=== PATIENT | female | born 1985 | race Caucasian/White ===

== ENCOUNTER 2016-07-23 00:36 | Emergency (ER) | payer BC ==
[~2016-07-23] VITALS: Ht 149.9 cm; Wt 70.3 kg
[~2016-07-23 00:36] MED LIST: ALBU1.25 IH; CETI10TA20 PO; CHOL3000 PO; FLUT1DIS27 IH; HYDR-3812 PO; IBUP-1773 PO; NITR-65 PO; RT-ALBUINH IH
[2016-07-23] MEDS ORDERED: predniSONE 20 MG TAB PO ONE (01:00)
[2016-07-23] MEDS ORDERED: RT-IPRATROPIUM (ATROVENT) 0.5MG/2.5ML AMP IH ONE (01:00)
[2016-07-23] MEDS ORDERED: DEXAMETHASONE 4 MG/ML SDV (DECADRON) IH ONE (01:00)
[2016-07-23] MEDS ORDERED: LEVOFLOXACIN 500 MG TAB (LEVAQUIN) PO ONE (02:30)
--- NOTE | 2016-07-23 02:35 | ED Respiratory ---
General Chief Complaint: Respiratory Problems Stated Complaint: ASTHMA ATTACK Nursing Triage Note: pt reports head congestion which settled in chest tuesday evening causing asthma exacerbation. she has used her nebulizer approx 25 times today along with albuteral inhaler. Source: patient History of Present Illness Time seen by provider: 00:44 Initial Comments C/O "ASTHMA ATTACK" STATES SHE HAS HAD UPPER RESPIRATORY/SINUS CONGESTION AND DRAINAGE/ALLERGIES FOR THE LAST COUPLE OF DAYS, NOW FEELS LIKE IT IS MOVING INTO HER CHEST HAS NON-PRODUCTIVE COUGH AND CHEST FEELS TIGHT. NO FEVER NO KNOWN SICK CONTACTS SYMPTOMS WORSENED SINCE TUESDAY EVENING 07/21/16 HAS USED HER ALBUTEROL NEBULIZER AT LEAST 25 TIMES TODAY, AND ADDITIONALLY SHE HAS USED HER ALBUTEROL INHALER MULTIPLE TIMES TODAY WELL. USED BOTH JUST PRIOR TO ARRIVAL STATES SYMPTOMS "COME AND GO" BUT STATES SHE HAS NOT NOTICED ANY IMPROVEMENT WITH THE ABOVE, ALTHOUGH SHE STATES THAT HER SYMPTOMS ARE IMPROVING SINCE SHE ARRIVED IN ER PT STATE SHE USES HER ALBUTEROL INHALER MULTIPLE TIMES EVERY DAY, NORMALLY--BUT HAS BEEN WORSE THAN NORMAL SINCE YESTERDAY. STATES SHE GOES THROUGH A MINIMUM OF 1 ALBUTEROL INHALER EVERY MONTH SHE USES ADVAIR 500/50 1 PUFF TWICE A DAY SHE ALSO USES ZYRTEC DAILY AND RHINOCORT NASAL SPRAY DAILY PT HAS NEVER SEEN A DIESEL ENGINE SPECIALIST PT HAS NEVER SMOKED PT HAS BEEN AT HER TUEDING REHEARSAL TONIGHT, THEN CAME HERE AFTER REHEARSAL. HAS HAD 2 MIXED DRINKS TONIGHT. PCP: DR. RAMIREZ Allergies and Home Medications Allergies Coded Allergies: latex (Verified Allergy, Unknown, RASH, 09/25/15) Home Medications Albuterol Sulfate 1.25 Mg/3 Ml Vial.neb, 1.25 MG IH Q4H PRN for SHORTNESS OF BREATH, (Reported) Albuterol Sulfate 8.5 Gm Hfa.aer.ad, 1-2 PUFF IH Q4H PRN for WHEEZING, (Reported ) Albuterol/Ipratropium 4 Gm Aero, 2 PUFF IH Q4H, #1 Prescribed by: KATHLEEN RAWLS on 07/23/16 0240 Budesonide 1 Mg/2 Ml Ampul.neb, 1 MG IH BID, #1 Prescribed by: KATHLEEN RAWLS on 07/23/16 0240 Cetirizine HCl 10 Mg Tablet, 10 MG PO DAILY, (Reported) Cetirizine HCl/Pseudoephedrine 1 Each Tab.er.12h, 1 EACH PO BID, #30 Prescribed by: KATHLEEN RAWLS on 07/23/16 0240 Fluticasone/Salmeterol 1 Each Blst.w.dev, 1 EACH IH BID, (Reported) Ipratropium/Albuterol Sulfate 3 Ml Ampul.neb, 3 ML IH Q4H PRN for SHORTNESS OF BREATH, #1 Prescribed by: KATHLEEN RAWLS on 07/23/16 0240 Levofloxacin 500 Mg Tablet, 500 MG PO DAILY, #10 Prescribed by: KATHLEEN RAWLS on 07/23/16 0240 Methylprednisolone 4 Mg Tab.ds.pk, 0 PO UD, #1 Prescribed by: KATHLEEN RAWLS on 07/23/16 0240 Constitutional: no symptoms reported EENTM: nose congestion, see HPI Respiratory: see HPI, cough, short of breath, wheezing Cardiovascular: see HPI, chest pain (TIGHTNESS) Gastrointestinal: no symptoms reported Genitourinary: no symptoms reported : No (HAS IUD) LMP: Jul 01, 2016 Musculoskeletal: no symptoms reported Skin: no symptoms reported Psychiatric/Neurological: Anxiety Hematologic/Lymphatic: No Symptoms Reported Immunological/Allergic: see HPI Past Hajpmgy-Fijxdc-Xwhudf Hx Patient Social History Alcohol Use: Occasionally Uses Recreational Drug Use: No Smoking Status: Never a Smoker 2nd Hand Smoke Exposure: No Recent Foreign Travel: No Contact w/Someone Who Travel: No Recent Infectious Disease Expo: No Recent Hopitalizations: No Seasonal Allergies Seasonal Allergies: Yes Surgeries HX Surgeries: Yes (wisdom teeth, cystoscopy; LAPAROSCOPY) Surgeries: Bladder Surgery Respiratory Hx Respiratory Disorders: Yes Respiratory Disorders: Asthma Cardiovascular Hx Cardiac Disorders: No Neurological Hx Neurological Disorders: No Reproductive System Hx Reproductive Disorders: No SHUTTLE HAND History: IUD Genitourinary Hx Genitourinary Disorders: Yes (IC) Genitourinary Disorders: UTI-Chronic Gastrointestinal Hx Gastrointestinal Disorders: No Musculoskeletal Hx Musculoskeletal Disorders: No Endocrine Hx Endocrine Disorders: No HEENT HX ENT Disorders: No Cancer Hx Cancer: No Psychosocial Hx Psychiatric Problems: Yes (OCD) Behavioral Health Disorders: ADD/ADHD, Anxiety, Depression Integumentary HX Skin/Integumentary Disorder: No Blood Transfusions Hx Blood Disorders: No Physical Exam Vital Signs Vital Sign - Last 12Hours 07/23/16 07/23/16 00:46 01:28 Temp 99.3 Pulse 102 Resp 28 B/P (MAP) 126/74 Pulse Ox 99 Capillary Refill : Less Than 3 Seconds General Appearance: WD/WN, no apparent distress, other (ANXIOUS AND MILD HYPERVENTILATION, BUT CAN TALK IN FULL SENTENCES) HEENT: PERRL/EOMI, TMs normal, pharynx normal, other (NASAL MUCOSAL EDEMA AND CLEAR RHINORRHEA. NO SINUS TENDERNESS) Neck: non-tender, full range of motion, supple, normal inspection Respiratory: no respiratory distress, no accessory muscle use, No rales, No rhonchi, No wheezing, other (LUNG SOUNDS SLIGHTLY DIMINISHED, PT MILDLY HYPERVENTILATING) Cardiovascular: normal peripheral pulses, no edema, no gallop, no JVD, no murmur, tachycardia Gastrointestinal: non tender, soft Extremities: normal inspection, no pedal edema, normal capillary refill Neurologic/Psychiatric: financial services rep II-XII nml as tested, no motor/sensory deficits, alert, oriented x 3, other (ANXIOUS) Skin: normal color, warm/dry Progress/Results/Core Measures Results/Orders Micro Results Microbiology 07/23/16 Influenza Types A,B Antigen (SANA) - Final, Complete My Orders Orders - KATHLEEN RAWLS DO Prednisone Tablet (Deltasone Tablet) (07/23/16 01:00) Chest Pa/Lat (2 View) (07/23/16 00:51) Influenza A And B Antigens (07/23/16 00:51) Ipratropium 0.02% Neb Solution (Atrovent (07/23/16 01:00) Dexamethasone Injection (Decadron Inject (07/23/16 01:00) Svn Sm Volume Nebulizer Rt-Rfs (07/23/16 00:51) Levofloxacin Tablet (Levaquin Tablet) (07/23/16 02:30) Medications Given in ED Current Medications Medications Dose Ordered Sig/Valeriy Route Start Time Stop Time Status Last Admin Dose Admin Dexamethasone Sodium Phosphate 20 mg ONCE ONCE IH 07/23/16 01:00 07/23/16 01:01 DC 07/23/16 01:27 20 MG Ipratropium [place] 0.5 mg ONCE ONCE IH 07/23/16 01:00 07/23/16 01:01 DC 07/23/16 01:27 0.5 MG Levofloxacin 500 mg ONCE ONCE PO 07/23/16 02:30 07/23/16 02:31 DC 07/23/16 02:46 500 MG Prednisone 60 mg ONCE ONCE PO 07/23/16 01:00 07/23/16 01:01 DC 07/23/16 01:44 60 MG Vital Signs/I&O Vital Sign - Last 12Hours 07/23/16 07/23/16 07/23/16 00:46 01:28 02:48 Temp 99.3 Pulse 102 89 Resp 28 16 B/P (MAP) 126/74 Pulse Ox 99 97 Blood Pressure Mean: 91 Progress Note : Progress Note FEELS MUCH BETTER AT DISMISSAL. CHEST DOES NOT FEEL TIGHT AND FEELS LIKE SHE CAN TAKE A DEEPER BREATH, PT CALMER LUNGS CLEAR AND O2 SATS IN UPPER 90'S AT TIME OF DISMISSAL Diagnostic Imaging Comments CXR--NO ACUTE PROCESS, PENDING RADIOLOGIST REVIEW Departure Impression Impression: Primary Impression: Asthma exacerbation Additional Impressions: Acute bronchitis Sinusitis Disposition: HOME, SELF-CARE Condition: Improved Departure-Patient Inst. Referrals: ANUJ RAMIREZ MD (PCP/Family) Primary Care Physician Patient Instructions: Acute Bronchitis, Adult (DC), Asthma, Adult (DC), Sinusitis, Adult (DC) Add. Discharge Instructions: HOLD ALBUTEROL NEBULIZER AND INHALER HOLD ZYRTEC CONTINUE RHINOCORT FOLLOW UP WITH DR. RAMIREZ ON TUESDAY FOR FURTHER CARE RETURN TO ER IF WORSE All discharge instructions reviewed with patient and/or family. Voiced understanding. Scripts Montelukast Sodium (Singulair) 10 Mg Tablet 10 MG PO DAILY, #30 TAB Prov: KATHLEEN RAWLS DO 07/23/16 Levofloxacin (Levaquin) 500 Mg Tablet 500 MG PO DAILY for INFECTION, #10 TAB Prov: KATHLEEN RAWLS DO 07/23/16 Budesonide (Pulmicort) 1 Mg/2 Ml Ampul.neb 1 MG IH BID, #1 EA Prov: KATHLEEN RAWLS DO 07/23/16 Methylprednisolone (Medrol) 4 Mg Tab.ds.pk 0 PO UD, #1 PKG Prov: KATHLEEN RAWLS DO 07/23/16 Cetirizine HCl/Pseudoephedrine (Zyrtec-D Tablet) 1 Each Tab.er.12h 1 EACH PO BID, #30 TAB Prov: KATHLEEN RAWLS DO 07/23/16 Ipratropium/Albuterol Sulfate (Iprat-Albut 0.5-3(2.5) mg/3 ml) 3 Ml Ampul.neb 3 ML IH Q4H Y for SHORTNESS OF BREATH, #1 EACH Prov: KATHLEEN RAWLS DO 07/23/16 Albuterol/Ipratropium (Combivent Respimat Inhal [place]) 4 Gm Aero 2 PUFF IH Q4H for Wheezing, #1 INH Prov: KATHLEEN RAWLS DO 07/23/16 KATHLEEN RAWLS DO Jul 23, 2016 02:35
[2016-07-23] MEDS ORDERED: IPRA4AER IH (02:40)
[2016-07-23] MEDS ORDERED: METH4TAB PO (02:40)
[2016-07-23] MEDS ORDERED: IPRA3AMP IH (02:40)
[2016-07-23] MEDS ORDERED: CETI1TAB61 PO (02:40)
[2016-07-23] MEDS ORDERED: LEVO500T2 PO (02:40)
[2016-07-23] MEDS ORDERED: BUDE1AMP IH (02:40)
[2016-07-23 02:48] VITALS: BP 120/77
[2016-07-23] MEDS ORDERED: MONT10TA21 PO (04:36)
--- NOTE | 2016-07-23 06:59 | Diagnostic Imaging Report ---
INDICATION: Cough and congestion. PA and lateral views of the chest are obtained. FINDINGS: Heart size and pulmonary vascularity are within normal limits, and the lungs are clear, bilaterally. IMPRESSION: Unremarkable chest. Dictated by: Dictated on workstation # [id number]
== END 2016-07-23 02:48 | disposition home or self-care (01) ==
LOC: EDUNIT# 00:36 → ER 00:38
DX: J45.901 Unspecified asthma with (acute) exacerbation (principal); J20.9 Acute bronchitis, unspecified; J32.9 Chronic sinusitis, unspecified
CPT/HCPCS: 71020; 87804; 94640; 99282

== ENCOUNTER → 2018-01-13 | Outpatient (CLI) | payer BC ==
[~2018-01-13] MED LIST changes: +ACHD5005 PO; +BUDE1AMP IH; +CETI1TAB61 PO; -HYDR-3812 PO; +IPRA3AMP31 IH; +IPRA4AER IH; +LEVO500T2 PO; +METH4TAB PO; +MONT10TA21 PO
--- NOTE | 2018-01-13 15:41 | Diagnostic Imaging Report ---
PROCEDURE: US Non-ob pelvis comp/trans. TECHNIQUE: Multiple realtime grayscale images were obtained of the pelvis in various projections endovaginally. Transabdominal imaging was also performed. INDICATION: Dyspareunia. FINDINGS: The uterus measures 6.4 x 4.1 x 3.6 cm. The endometrium is 3 mm in thickness. There is an IUD which appears to be appropriately located within the endometrial canal. There is a fibroid anterior uterus measuring approximately 11 mm in diameter. No other myometrial masses are seen. The right ovary was obscured by bowel gas and not visualized. Left ovary measures 3.7 x 2.4 x 1.5 cm. The left ovary contains multiple follicles. There is blood flow. No adnexal mass or free fluid is seen. IMPRESSION: 1. Small uterine fibroid. 2. Appropriately located IUD. 3. Nonvisualized right ovary. Dictated by: Dictated on workstation # [id number]
== END ==
LOC: RAD 13:35
PROVIDERS: ATTEND Obstetrics & Gynecology
DX: D25.9 Leiomyoma of uterus, unspecified (principal); N94.10 Unspecified dyspareunia
CPT/HCPCS: 76830; 76856

== ENCOUNTER 2018-06-08 14:21 | Emergency (ER) | payer BC ==
[~2018-06-08] VITALS: Ht 149.9 cm; Wt 86.2 kg
--- OUTSIDE RECORDS SUMMARY | 2018-06-08 14:25 | XMS REPORT | Continuity of Care Document ---
Author Author [facility] Organization [facility] Address Unknown Phone Unavailable Allergies Active Description Code Type Severity Reaction Onset Reported/Identified Relationship to Patient Clinical Status Yes No Allergy Information Available [id number] Drug Allergy Unknown N/A 2014 Yes latex [id number] Drug Allergy Unknown RASH 09/25/2015 Medications There is no data. Problems Date Dx Coded Attending Type Code Diagnosis Diagnosed By 12/30/2014 SELENE LEE DO Ot M25.551 01/09/2015 SELENE LEE DO Ot M25.551 01/28/2015 Ot R07.81 05/14/2015 Ot N39.0 06/11/2015 ANUJ RAMIREZ MD Ot N39.0 09/19/2015 TATY BRAXTON DO Ot D25.1 INTRAMURAL LEIOMYOMA OF UTERUS 09/19/2015 TATY BRAXTON DO Ot N83.29 OTHER OVARIAN CYSTS 09/19/2015 TATY BRAXTON DO Ot R10.2 PELVIC AND PERINEAL PAIN 09/25/2015 TATY BRAXTON DO Ot R10.31 RIGHT LOWER QUADRANT PAIN 09/25/2015 TATY BRAXTON DO Ot Z01.812 ENCOUNTER FOR PREPROCEDURAL LABORATORY E 09/25/2015 TATY BRAXTON DO Ot Z11.2 ENCOUNTER FOR SCREENING FOR OTHER BACTER 10/02/2015 SELENE LEE DO Ot M25.551 PAIN IN RIGHT HIP 10/02/2015 Ot R07.81 PLEURODYNIA 10/02/2015 Ot N39.0 URINARY TRACT INFECTION, SITE NOT SPECIF 10/02/2015 ANUJ RAMIREZ MD Ot N39.0 URINARY TRACT INFECTION, SITE NOT SPECIF 10/02/2015 TATY BRAXTON DO Ot D25.1 INTRAMURAL LEIOMYOMA OF UTERUS 10/02/2015 TATY BRAXTON DO Ot N83.29 OTHER OVARIAN CYSTS 10/02/2015 TATY BRAXTON DO Ot R10.2 PELVIC AND PERINEAL PAIN 10/02/2015 FENECH DO, TATY S Ot K66.0 PERITONEAL ADHESIONS (POSTPROCEDURAL) (P 10/02/2015 FENECH DO, TATY S Ot N83.20 UNSPECIFIED OVARIAN CYSTS 10/06/2015 FENECH DO, TATY S Ot K66.0 PERITONEAL ADHESIONS (POSTPROCEDURAL) (P 10/06/2015 FENECH DO, TATY S Ot N83.20 UNSPECIFIED OVARIAN CYSTS 10/14/2015 ROOSEVELT CANTU, BRAXTON Mckeon Ot N39.0 URINARY TRACT INFECTION, SITE NOT SPECIF 10/14/2015 ROOSEVELT CANTU, BRAXTON Mckeon Ot R30.0 DYSURIA 10/16/2015 ROOSEVELT CANTU, BRAXTON Mckeon Ot N39.0 URINARY TRACT INFECTION, SITE NOT SPECIF 10/16/2015 ROOSEVELT CANTU, BRAXTON Mckeon Ot R30.0 DYSURIA 10/22/2015 ROOSEVELT CANTU, BRAXTON Mckeon Ot N39.0 URINARY TRACT INFECTION, SITE NOT SPECIF 10/22/2015 ROOSEVELT CANTU, BRAXTON Mckeon Ot R30.0 DYSURIA 07/23/2016 CURLY DO KATHLEEN K Ot J20.9 ACUTE BRONCHITIS, UNSPECIFIED 07/23/2016 CURLY DO KATHLEEN K Ot J32.9 CHRONIC SINUSITIS, UNSPECIFIED 07/23/2016 CURLY DO KATHLEEN K Ot J45.901 UNSPECIFIED ASTHMA WITH (ACUTE) EXACERBA 07/23/2016 CURLY DO KATHLEEN K Ot J45.909 UNSPECIFIED ASTHMA, UNCOMPLICATED 07/23/2016 ROOSEVELT CANTU, BRAXTON Mckeon Ot N39.0 URINARY TRACT INFECTION, SITE NOT SPECIF 07/23/2016 ROOSEVELT CANTU, BRAXTON Mckeon Ot R30.0 DYSURIA 07/25/2016 CURLY DO KATHLEEN K Ot J20.9 ACUTE BRONCHITIS, UNSPECIFIED 07/25/2016 CURLY DO KATHLEEN K Ot J32.9 CHRONIC SINUSITIS, UNSPECIFIED 07/25/2016 CURLY DO KATHLEEN K Ot J45.901 UNSPECIFIED ASTHMA WITH (ACUTE) EXACERBA 07/25/2016 CURLY DO KATHLEEN K Ot J45.909 UNSPECIFIED ASTHMA, UNCOMPLICATED 08/31/2016 CURLY DO KATHLEEN K Ot J20.9 ACUTE BRONCHITIS, UNSPECIFIED 08/31/2016 CURLY DO KATHLEEN K Ot J32.9 CHRONIC SINUSITIS, UNSPECIFIED 08/31/2016 CURLY DO KATHLEEN K Ot J45.901 UNSPECIFIED ASTHMA WITH (ACUTE) EXACERBA 08/31/2016 KATHLEEN RAWLS DO Ot J45.909 UNSPECIFIED ASTHMA, UNCOMPLICATED 01/17/2018 TATY BRAXTON DO Ot D25.9 LEIOMYOMA OF UTERUS, UNSPECIFIED 01/17/2018 TATY BRAXTON DO Ot N94.10 UNSPECIFIED DYSPAREUNIA 01/25/2018 TATY BRAXTON DO Ot D25.9 LEIOMYOMA OF UTERUS, UNSPECIFIED 01/25/2018 TATY BRAXTON DO Ot N94.10 UNSPECIFIED DYSPAREUNIA Procedures There is no data. Results Test Result Range Influenza virus A and B antigen detection - 07/23/16 01:53 FLU RESULT NEGATIVE FOR INFLUENZA A AND B ANTIGENS BY IA NRG Encounters ACCT No. Visit Date/Time Discharge Status Pt. Type Provider Facility Loc./Unit Complaint [id number] 01/09/2018 15:15:00 01/09/2018 23:59:59 CLS Outpatient TATY BRAXTON DO [facility] RAD DYSPAREUNIA [id number] 07/23/2016 00:38:00 07/23/2016 02:48:00 DIS Outpatient KATHLEEN RAWLS DO [facility] ER ASTHMA ATTACK [id number] 10/09/2015 08:16:00 10/09/2015 23:59:59 CLS Outpatient BRAXTON ALBERT MD [facility] RAD R30; N37.0 [id number] 10/02/2015 08:52:00 10/02/2015 15:30:00 DIS Outpatient TATY BRAXTON DO [facility] SDC [id number] 09/25/2015 12:36:00 09/25/2015 13:07:00 DIS Outpatient TATY BRAXTON DO [facility] PREOP [id number] 09/05/2015 13:37:00 09/05/2015 23:59:59 CLS Outpatient TATY BRAXTON DO [facility] RAD [id number] 06/03/2015 13:57:00 06/03/2015 23:59:59 CLS Outpatient ANUJ RAMIREZ MD [facility] LAB [id number] 12/26/2014 09:14:00 12/26/2014 23:59:59 CLS Outpatient SELENE LEE DO [facility] RAD [id number] 06/08/2018 14:22:00 ACT Emergency IGNACIO CANTU, SEDA Rooney [facility] ER CHEST PAIN [id number] 04/29/2015 16:16:00 Document Registration [id number] 01/13/2015 13:48:00 Document Registration
--- NOTE | 2018-06-08 15:06 | Diagnostic Imaging Report ---
INDICATION: Weakness asthma chest pain COMPARISON: 07/23/2016 FINDINGS: Frontal and lateral views the chest demonstrate clear lungs bilaterally. The heart size is normal. There is no pneumothorax. Osseous structures are normal. IMPRESSION: No acute findings. Normal chest. Dictated by: Dictated on workstation # [id number]
--- NOTE | 2018-06-08 15:18 | NUR ---
LAB HERE FOR BLOOD DRAW.
[2018-06-08 15:31] LABS: BASOPHILS # (AUTO) 0.1 10^3/uL (0.0-0.1); BASOPHILS % (AUTO) 1 % (0-10); EOSINOPHILS % (AUTO) 10 % (0-10); HEMATOCRIT 41 % (35-52); LYMPHOCYTES # (AUTO) 2.5 X 10^3 (1.0-4.0); LYMPHOCYTES % (AUTO) 25 % (12-44); MEAN CORPUSCULAR HEMOGLOBIN 31 PG (25-34); MEAN CORPUSCULAR HGB CONC 35 G/DL (32-36); MEAN CORPUSCULAR VOLUME 88 FL (80-99); MONOCYTES # (AUTO) 0.4 X 10^3 (0.0-1.0); MONOCYTES % (AUTO) 5 % (0-12); NEUTROPHILS # (AUTO) 5.9 X 10^3 (1.8-7.8); NEUTROPHILS % (AUTO) 60 % (42-75); PLATELET COUNT 310 10^3/uL (130-400); RED CELL DISTRIBUTION WIDTH 12.6 % (10.0-14.5); WHITE BLOOD COUNT 9.9 10^3/uL (4.3-11.0)
--- NOTE | 2018-06-08 15:46 | ED Cardiac General ---
History of Present Illness General Chief Complaint: Cardiac/General Problems Stated Complaint: CHEST PAIN Nursing Triage Note: ARRIVED VIA AMB WITH COMPLAINTS OF PALPITATIONS AND FEELING FAINT. WAS SENT HERE BY HER DR FOR A EKG. Source: patient Exam Limitations: no limitations History of Present Illness Date Seen by Provider: Jun 08, 2018 Time Seen by Provider: 14:22 Initial Comments This 33-year-old young lady presents to the emergency room with complaints of palpitations, lightheadedness, mild tachycardia and shortness of breath. This is been a persistent problem for about 4 days now. She saw her primary care provider who ordered labs at [facility] and an EKG to be done at the hospital. Patient presented to the hospital to have her EKG done but decided to check into the ER because symptoms were worsening. She denies any drug or alcohol use or use of stimulants aside from a couple of cups of coffee. She does have a history of asthma. She has been using her nebulizer and inhaler to help with the sensation or shortness of air. She gets some minimal temporary relief. Patient has not eaten today. Allergies and Home Medications Allergies Coded Allergies: latex (Verified Allergy, Unknown, RASH, 09/25/15) Home Medications Albuterol Sulfate 1.25 Mg/3 Ml Vial.neb, 1.25 MG IH Q4H PRN for SHORTNESS OF BREATH, (Reported) Albuterol Sulfate 8.5 Gm Hfa.aer.ad, 1-2 PUFF IH Q4H PRN for WHEEZING, (Reported ) Albuterol/Ipratropium 4 Gm Aero, 2 PUFF IH Q4H Prescribed by: KATHLEEN RAWLS on 07/23/16239 Budesonide 1 Mg/2 Ml Ampul.neb, 1 MG IH BID Prescribed by: KATHLEEN RAWLS on 07/23/16239 Cetirizine HCl 10 Mg Tablet, 10 MG PO DAILY, (Reported) Cetirizine HCl/Pseudoephedrine 1 Each Tab.er.12h, 1 EACH PO BID Prescribed by: KATHLEEN RAWLS on 07/23/16239 Fluticasone/Salmeterol 1 Each Blst.w.dev, 1 EACH IH BID, (Reported) Ipratropium/Albuterol Sulfate 3 Ml Ampul.neb, 3 ML IH Q4H PRN for SHORTNESS OF BREATH Prescribed by: KATHLEEN RAWLS on 07/23/16239 Levofloxacin 500 Mg Tablet, 500 MG PO DAILY Prescribed by: KATHLEEN RAWLS on 07/23/16239 Methylprednisolone 4 Mg Tab.ds.pk, 0 PO UD Prescribed by: KATHLEEN RAWLS on 07/23/16239 Montelukast Sodium 10 Mg Tablet, 10 MG PO DAILY Prescribed by: KATHLEEN RAWLS on 07/23/16 0436 Patient Home Medication List Home Medication List Reviewed: Yes Review of Systems Review of Systems Constitutional: no symptoms reported EENTM: No Symptoms Reported Respiratory: See HPI Cardiovascular: See HPI Gastrointestinal: No Symptoms Reported Genitourinary: No Symptoms Reported Musculoskeletal: no symptoms reported Skin: no symptoms reported Psychiatric/Neurological: See HPI Endocrine: No Symptoms Reported Hematologic/Lymphatic: No Symptoms Reported Past Vpiugky-Fdqqpw-Grgvar Hx Past Med/Social Hx: Reviewed Nursing Past Med/Soc Hx Patient Social History Alcohol Use: Occasionally Uses Recreational Drug Use: No Smoking Status: Never a Smoker 2nd Hand Smoke Exposure: No Recent Foreign Travel: No Contact w/Someone Who Travel: No Recent Infectious Disease Expo: No Recent Hopitalizations: No Seasonal Allergies Seasonal Allergies: Yes Past Medical History Surgeries: Yes (wisdom teeth, cystoscopy; LAPAROSCOPY) Bladder Surgery Respiratory: Yes Asthma Cardiac: No Neurological: No : No Reproductive Disorders: No CANDY DIPPER History: IUD Genitourinary: No UTI-Chronic Gastrointestinal: No Musculoskeletal: No Endocrine: No HEENT: No Cancer: No Psychosocial: Yes (OCD) ADD/ADHD, Anxiety, Depression Integumentary: No Blood Disorders: No Physical Exam Vital Signs Vital Signs - First Documented 06/08/18 06/08/18 14:36 16:47 Temp 98.0 Pulse 104 Resp 16 B/P (MAP) 149/102 (118) Pulse Ox 100 O2 Delivery Room Air Capillary Refill : Less Than 3 Seconds Height, Weight, BMI Height: 4'11.00" Weight: 190lbs. 0.0oz. 86.464593zv; 29.1 BMI Method:Stated General Appearance: No Apparent Distress, WD/WN HEENT: PERRL/EOMI, Normal ENT Inspection Neck: Normal Inspection Respiratory: Lungs Clear, Normal Breath Sounds, No Accessory Muscle Use, No Respiratory Distress Cardiovascular: No Edema, No Murmur, Normal Peripheral Pulses, Tachycardia Gastrointestinal: Normal Bowel Sounds, Non Tender, Soft Extremity: Normal Inspection, Non Tender, No Calf Tenderness, No Pedal Edema, Other (negative Terri) Neurologic/Psychiatric: Alert, Oriented x3, No Motor/Sensory Deficits, Normal Mood/Affect, certified medical technician assistant II-XII Norm as Tested Skin: Normal Color, Warm/Dry Progress/Results/Core Measures Results/Orders Lab Results Laboratory Tests Test 06/08/18 15:25 Range/Units White Blood Count 9.9 4.3-11.0 10^3/uL Red Blood Count 4.58 4.35-5.85 10^6/uL Hemoglobin 14.0 11.5-16.0 G/DL Hematocrit 41 35-52 % Mean Corpuscular Volume 88 80-99 FL Mean Corpuscular Hemoglobin 31 25-34 PG Mean Corpuscular Hemoglobin Concent 35 32-36 G/DL Red Cell Distribution Width 12.6 10.0-14.5 % Platelet Count 310 130-400 10^3/uL Mean Platelet Volume 10.0 7.4-10.4 FL Neutrophils (%) (Auto) 60 42-75 % Lymphocytes (%) (Auto) 25 12-44 % Monocytes (%) (Auto) 5 0-12 % Eosinophils (%) (Auto) 10 0-10 % Basophils (%) (Auto) 1 0-10 % Neutrophils # (Auto) 5.9 1.8-7.8 X 10^3 Lymphocytes # (Auto) 2.5 1.0-4.0 X 10^3 Monocytes # (Auto) 0.4 0.0-1.0 X 10^3 Eosinophils # (Auto) 1.0 H 0.0-0.3 10^3/uL Basophils # (Auto) 0.1 0.0-0.1 10^3/uL D-Dimer 0.29 0.00-0.49 UG/ML Sodium Level 140 135-145 MMOL/L Potassium Level 3.5 L 3.6-5.0 MMOL/L Chloride Level 108 H 98-107 MMOL/L Carbon Dioxide Level 22 21-32 MMOL/L Anion Gap 10 5-14 MMOL/L Blood Urea Nitrogen 9 7-18 MG/DL Creatinine 0.74 0.60-1.30 MG/DL Estimat Glomerular Filtration Rate > 60 BUN/Creatinine Ratio 12 Glucose Level 96 70-105 MG/DL Calcium Level 9.1 8.5-10.1 MG/DL Corrected Calcium 8.5-10.1 MG/DL Magnesium Level 2.1 1.8-2.4 MG/DL Total Bilirubin 0.6 0.1-1.0 MG/DL Aspartate Amino Transf (AST/SGOT) 18 5-34 U/L Alanine Aminotransferase (ALT/SGPT) 26 0-55 U/L Alkaline Phosphatase 72 40-136 U/L Troponin I < 0.028 <0.028 NG/ML Total Protein 7.3 6.4-8.2 GM/DL Albumin 4.6 H 3.2-4.5 GM/DL TSH Bremer Testing 1.70 0.35-4.94 UIU/ML My Orders Orders - SEDA PIERRE MD Saline Lock/Iv-Start (06/08/18 14:34) Ekg Tracing (06/08/18 14:34) Monitor-Rhythm Ecg Trace Only (06/08/18 14:34) Cbc With Automated Diff (06/08/18 14:38) Comprehensive Metabolic Panel (06/08/18 14:38) Fibrin Degradation Products (06/08/18 14:38) Magnesium (06/08/18 14:38) Thyroid Analyzer (06/08/18 14:38) Troponin I (06/08/18 14:38) Chest Pa/Lat (2 View) (06/08/18 14:38) Vital Signs/I&O 06/08/18 06/08/18 14:36 16:47 Temp 98.0 Pulse 104 89 Resp 16 16 B/P (MAP) 149/102 (118) 126/89 (101) Pulse Ox 100 99 O2 Delivery Room Air Blood Pressure Mean: 118 Progress Progress Note : Progress Note Workup was unremarkable and vital signs were stable. Patient's heart rate was in the 70s at rest prior to dismissal. I believe anxiety probably plays a significant role in her symptoms. I advised her to continue the workup with Saige Leach as an outpatient. Initial ECG Impression Date: Jun 08, 2018 Initial ECG Impression Time: 14:28 Initial ECG Rate: 93 Initial ECG Rhythm: Normal Sinus Initial ECG Intervals: Normal Initial ECG Impression: Normal Comment Normal sinus rhythm with no ST elevation or depression. No abnormal intervals or axis deviation. Diagnostic Imaging Diagonstic Imaging: Xray Plain Films/CT/US/NM/MRI: chest Comments Chest x-ray viewed by me and report reviewed. See report below: NAME: CHI MURPHY [facility] REC#: [id number] PT STATUS: REG ER : 1985 PHYSICIAN: SEDA PIERRE MD ADMIT DATE: 06/08/18/ER Signed Date of Exam:06/08/18 CHEST PA/LAT (2 VIEW) INDICATION: Weakness asthma chest pain COMPARISON: 07/23/2016 FINDINGS: Frontal and lateral views the chest demonstrate clear lungs bilaterally. The heart size is normal. There is no pneumothorax. Osseous structures are normal. IMPRESSION: No acute findings. Normal chest. Dictated by: Dictated on workstation # [id number] Dict: 06/08/18 1503 Trans: 06/08/18 1503 [id number] Interpreted by: DEN PRESLEY Electronically signed by: DEN PRESLEY 06/08/18 1503 Departure Impression Primary Impression: Lightheadedness Additional Impression: Heart palpitations Disposition: 01 HOME, SELF-CARE Condition: Improved Departure-Patient Inst. Decision time for Depature: 16:28 Referrals: ANUJ RAMIREZ MD (PCP/Family) Primary Care Physician Patient Instructions: Palpitations (DC) Add. Discharge Instructions: Drink plenty of clear liquids. Continue your workup as directed by your primary care provider. Return to the emergency room if you have notably worsening symptoms. Stay well-hydrated and get plenty of rest. All discharge instructions reviewed with patient and/or family. Voiced understanding. Copy Copies To 1: SAIGE LEACH JOSHUA T MD Jun 08, 2018 15:46
[2018-06-08 15:52] LABS: ALANINE AMINOTRANSFERASE 26 U/L (0-55); ALBUMIN 4.6 GM/DL (3.2-4.5); ALKALINE PHOSPHATASE 72 U/L (40-136); BILIRUBIN,TOTAL 0.6 MG/DL (0.1-1.0); BUN/CREATININE RATIO 12; CALCIUM 9.1 MG/DL (8.5-10.1); CARBON DIOXIDE 22 MMOL/L (21-32); CHLORIDE 108 MMOL/L (98-107); CREATININE SERUM 0.74 MG/DL (0.60-1.30); GFR ESTIMATED > 60; GLUCOSE 96 MG/DL (70-105); MAGNESIUM 2.1 MG/DL (1.8-2.4); POTASSIUM 3.5 MMOL/L (3.6-5.0); SODIUM 140 MMOL/L (135-145); TOTAL PROTEIN 7.3 GM/DL (6.4-8.2)
--- NOTE | 2018-06-08 16:00 | NUR ---
RESTING IN BED ET DENIES NEEDS AT THIS TIME. NOTIFIED WE WERE STILL WAITING ON SOME LABS TO COME BACK.
--- NOTE | 2018-06-08 16:18 | NUR ---
IN TALKING TO PT AT THIS TIME.
[2018-06-08 16:47] VITALS: BP 126/89
== END 2018-06-08 16:47 | disposition home or self-care (01) ==
LOC: EDUNIT# 14:21 → ER 14:22
DX: R42 Dizziness and giddiness (principal); R00.2 Palpitations; J45.909 Unspecified asthma, uncomplicated; F98.8 Other specified behavioral and emotional disorders with onset usually occurring in childhood and adolescence; F90.9 Attention-deficit hyperactivity disorder, unspecified type; F41.9 Anxiety disorder, unspecified; F32.9 Major depressive disorder, single episode, unspecified; F42.9 Obsessive-compulsive disorder, unspecified; Z87.440 Personal history of urinary (tract) infections; Z91.040 Latex allergy status; Z79.51 Long term (current) use of inhaled steroids; Z79.52 Long term (current) use of systemic steroids; Z98.890 Other specified postprocedural states
CPT/HCPCS: 36415; 71046; 80053; 83735; 84443; 84484; 85025; 85379; 93005; 93041

== ENCOUNTER 2018-06-21 13:52 | Outpatient (RCR) | payer BC | END 2018-09-19 | disposition home or self-care (01) | LOC: CARD 13:52 | PROVIDERS: ATTEND Physician Assistant | DX: R00.2 Palpitations (principal); I49.8 Other specified cardiac arrhythmias; J45.909 Unspecified asthma, uncomplicated | CPT/HCPCS: 93225; 93226; 93306 ==